=== PATIENT | female | born 1960 | race Caucasian/White ===

== ENCOUNTER 2021-09-01 17:46 | Emergency (ER) | payer BC | END 2021-09-01 18:28 | disposition home or self-care (01) | LOC: MW.ED 17:46 | DX: S01.81XA Laceration without foreign body of other part of head, initial encounter (principal); W17.89XA Other fall from one level to another, initial encounter | CPT/HCPCS: 12011; 99282; 99282-25 ==

== ENCOUNTER 2021-09-01 21:01 | Emergency (ER) | payer BC ==
[2021-09-01] MEDS ORDERED: Acetaminophen/Codeine 300-30 MG Tab PO ONE (23:25)
== END 2021-09-01 23:31 | disposition home or self-care (01) ==
LOC: MW.ED 21:01
DX: M25.461 Effusion, right knee (principal)
CPT/HCPCS: 73562; 73700; 99283; A9270